=== PATIENT | male | born 1965 | race Caucasian/White ===

== ENCOUNTER 2023-02-01 06:54 | Day surgery (SDC) | payer OTHER, SELFPAY ==
--- NOTE | 2023-01-31 | CONS_ITS ---
CONSULTATION DATE: ??01/31/2023 HISTORY:? Patient was examined off campus.? Interview process was also performed off campus.? He reports having had 5-7/10 pain, sharp in character in his left lower back area, starting approximately 12 weeks ago.? The pain occurred spontaneously, increased gradually to its present state.? He reports the pain as being 5-7/10 pain, sharp in character, increased with activities such as standing, walking and performing transitioning maneuvers.? He feels most comfortable in the semi-recumbent position.? Denies any change in bowel and bladder habits or new sensorimotor changes in the lower extremities. EXAM:? Notable for patient having no clinical radiculopathy or myelopathy involving the lower extremities.? Patient did have pain with lumbar facet loading maneuvers on the left side, with associated myofascial spasm. IMPRESSION:? Patient appears to have chronic pain secondary to lumbosacral spondylosis with facet joint loading pain clinically and myofascial spasm. RECOMMENDATIONS:? I recommend patient proceed with a rhizotomy using radiofrequency ablation of the left L3, L4 and L5 medial branch under fluoroscopic guidance.? I have gone over the details of the procedure with the patient.? All his questions answered.? He agrees to proceed with the outline plan.? We may premedicate the patient with Valium 10 mg pills, 1-2 pills pre- procedurally, in divided doses. MTDD
[2023-02-01 07:19] VITALS: BP 134/92; PULSE 79; RESP 16; TEMP 36.2; O2SAT 98
[2023-02-01] MEDS: BUPIVACAINE HCL 0.25% PF 25 MG/10 ML VIAL INJ (07:35)
[2023-02-01] MEDS: LIDOCAINE HCL 2% 400 MG/20 ML MDV 15 ML INJ (07:35)
[2023-02-01 08:10] VITALS: BP 130/78; BP 138/80; PULSE 74; PULSE 78; RESP 18; RESP 20; O2SAT 93; O2SAT 94
--- NOTE | 2023-02-01 08:17 | W.PM.PROCNOT ---
Date of procedure: 02/01/23 Pre-op diagnosis: Lumbar spondylosis Post-op diagnosis: same as pre-op Procedure: Left lumbar 3,4,5 Radiofrequency ablation Under fluoroscopic guidance Rhizotomy was created using radio frequency ablation at 80?C for 90 seconds 1 to 2 lesions created at each site. Post lesioning injection of 2 mL each of 0.25% Marcaine and 2% lidocaine with Depo-Medrol 40mg. 0.5 to 1 mL injected at each site Anesthesia local 2% lidocaine for Timeout process compliant After informed consent obtained.Patient brought to the procedure room placed in the prone position skin overlying the area was prepped and draped in a sterile fashion using betadine. 25 gauge needle was used to create a skin wheal over each of the targeted areas utilizing 2% lidocaine. A rhizotomy needle with a 10 mm active tip was inserted over each of the anesthetized areas and directed towards each of the medial branches accomplished under fluoroscopic guidance. after encountering the same we had positive sensory stimulation, negative motor stimulation was noted. lesions were then created. Post lesioning, steroid solution was injected needles removed. Patient was transferred to recovery room in stable condition to be discharged home after meeting criteria. Anesthesia: Local Surgeon: Navneet Basilio Condition: stable
[2023-02-01] MEDS: METHYLPREDNISOLONE ACETATE 40 MG/ML VIAL INJ (08:30)
== END 2023-02-01 08:12 | disposition home or self-care (01) ==
PROVIDERS: Visit Provider Anesthesiology Pain Medicine
DX: M47.816 Spondylosis without myelopathy or radiculopathy, lumbar region (principal)
CPT/HCPCS: 64635; 64636; J1030

== ENCOUNTER 2023-02-07 07:20 | Outpatient (OUT) | payer OTHER, SELFPAY ==
--- NOTE | 2023-02-07 | CONS_ITS ---
CONSULTATION DATE: ??02/07/2023 CHIEF COMPLAINT:? Left buttock pain, leg pain. HISTORY:? He reports the pain started six months ago in his lower back, left lower extremity.? He underwent a left sided L3, 4 and 5 medial branch RFA which offered him little relief in terms of his left lower leg pain, and marginal relief of his lower back pain. EXAM:? His examination is notable for the patient having hypoesthesia along the left L4 dermatome, weakness of his left anterior tibialis, depressed left patella reflex, straight leg raise positive approximately 40 degrees.? Weakness is rated 3/5 in strength. IMPRESSION:? Patient has chronic pain secondary to left L4 radiculopathy.? The patient has failed conservative management with non-steroidal use.? He has been on non-steroidal use, on and off for the last eight weeks, 800 mg t.i.d.? He has undergone activity modification and continues to perform an independent home exercise program with the use of stationary bicycle.? RECOMMENDATIONS:? I recommend he consider Zonegran 50 mg pills, 1-2 at h.s.? Restart baclofen 10 mg pills, half a pill to one pill at h.s.? A lumbosacral MRI with and without contrast, and proceed with a left L4 transforaminal epidural steroid injection under fluoroscopic guidance. As part of providing excellent, safe, comprehensive care, the following was completed at our patient's visit: 1. A medication reconciliation and review to ensure accurate knowledge of current/active medications, including asking our patients to inform us about any [id number] medications or herbal remedies/nutritional supplements/alternative remedies. 2. A review to specifically ensure our patients have had annual screening for: elevated body mass index (BMI, see intake chart for exact total), tobacco use, screening for depression, and screening for unhealthy alcohol use.? When screening is concerning, patients are provided with education and the specific recommendation to discuss the concerning health issue and treatment options with their primary care provider. JENIFFER
== END 2023-02-07 07:21 | disposition home or self-care (01) ==
LOC: PM 07:21
PROVIDERS: Visit Provider Anesthesiology Pain Medicine
DX: M54.16 Radiculopathy, lumbar region (principal); G89.29 Other chronic pain
CPT/HCPCS: G0463